=== PATIENT | male | born 1970 | race Caucasian/White ===

== ENCOUNTER 2017-06-08 12:58 | Emergency (ER) | payer SELFPAY ==
[~2017-06-08] VITALS: Ht 182.9 cm; Wt 131.0 kg
[~2017-06-08 12:58] MED LIST: DULE100A INH; DULERA PO; FLUT50SP EACH NARE; PRAV20TA PO
[2017-06-08 12:59] VITALS: BP 147/92; PULSE 88; RESP 18; TEMP 98.1; O2SAT 99
--- NOTE | 2017-06-08 13:22 | PD ---
HPI Chief Complaint: Skin Problem Time Seen by Provider: 13:13 Travel History International Travel<30 days: No Contact w/Intl Traveler<30days: No Traveled to known affect area: No History of Present Illness HPI 37-year-old male with PMH of MRSA presents to the ED for evaluation of painful, erythematous "spider bite" of the left calf. Pain rated 5/10, described as throbbing, no alleviating or exacerbating factors reported. Patient states he woke up 5 days ago with a small area that has since grown larger. He endorses "a little bit" of discharge from the area. He denies wrist, chills, nausea, vomiting, numbness, tingling, limitations to range of motion of the extremity. No treatment attempted at home. PFSH Past Medical History Asthma: Yes Past Surgical History Cholecystectomy: Yes Social History Alcohol Use: Yes (OCC) Tobacco Use: Yes (VAPE) Substance Use: Yes (OCC MARIJUANA) Allergies-Medications (Allergen,Severity, Reaction): Coded Allergies: house dust (Unverified Allergy, Severe, STS SEVERE ASTHMA, 06/08/17) cat dander (Unverified Allergy, Mild, STS MILD ASTHMA, 06/08/17) Uncoded Allergies: Trees, pine, oak, susanne (Allergy, Intermediate, Sinus reactions, 04/25/16) Reported Meds & Prescriptions Reported Meds & Active Scripts Active Ibuprofen 800 Mg Tab 800 Mg PO Q8H PRN Keflex (Cephalexin) 500 Mg Cap 500 Mg PO Q6H Bactrim DS (Sulfamethoxazole-Trimethoprim) 800-160 Mg Tab 1 Tab PO BID Pravachol (Pravastatin) 20 Mg Tab 20 Mg PO DAILY PRN Reported Fluticasone Nasal [place] 50 Mcg/Act Naspr 50 Mcg EACH NARE BID 50 mcg/spray Dulera 120 Act Inh (Mometasone-Formoterol 120 Act Inh) 100-5 Mcg/Act Inh 2 Puff INH BID [dulera 100-5mcg ] 2 Inhaler PO BID PRN Review of Systems Except as stated in HPI: all other systems reviewed are Neg Physical Exam Narrative GENERAL: Well-nourished, well-developed white male in no acute distress. SKIN: Focused skin assessment warm/dry. SKIN: There is an indurated area in the left lateral calf which measures about 2 cm in diameter. It is fluctuant but there is no pointing or drainage. There is a zone of inflammation around it but no lymphangitis. Compartments of the leg are soft. HEAD: Normocephalic. EYES: No scleral icterus. No injection or drainage. NECK: Supple, trachea midline. No JVD or lymphadenopathy. CARDIOVASCULAR: Regular rate and rhythm without murmurs, gallops, or rubs. RESPIRATORY: Breath sounds equal bilaterally. No accessory muscle use. GASTROINTESTINAL: Abdomen soft, non-tender, nondistended. MUSCULOSKELETAL: No cyanosis, or edema. BACK: Nontender without obvious deformity. No CVA tenderness. Data Data Last Documented VS Vital Signs Date Time Temp Pulse Resp B/P (MAP) Pulse Ox O2 Delivery O2 Flow Rate FiO2 06/08/17 13:12 18 06/08/17 12:59 98.1 88 147/92 (110) 99 Orders Orders Abscess Culture And Gram Stain (06/08/17 13:22) Lidocaine 1% Inj (50 Ml) (Xylocaine 1% I (06/08/17 13:30) Sulfamet-Trimeth Ds 800-160 Mg (Bactrim (06/08/17 13:30) Cephalexin (Keflex) (06/08/17 13:30) Ibuprofen (Motrin) (06/08/17 13:30) Ed Discharge Order (06/08/17 14:07) [facility] Medical Decision Making Medical Screen Exam Complete: Yes Emergency Medical Condition: Yes Differential Diagnosis Folliculitis versus abscess versus cellulitis versus other Narrative Course 47-year-old male with PMH of MRSA presents to the ED for evaluation of day history of painful reddened area of the left calf. Patient states that he thinks he had a spider bite. Treated with warm compresses with no improvement of symptoms. Patient afebrile on presentation. Physical exam consistent with abscess. Abscess I&D was performed. Please see my procedure note for details. Patient was prescribed Bactrim and Keflex, first dose is administered in the ED. He is instructed to take every antibiotic pill until they are all gone, return in 2 days for packing removal and wound recheck. He indicated understanding of instructions and is agreeable care plan. He stable and discharged home. Procedures Procedure Narrative INCISION AND DRAINAGE OF ABSCESS: The area was prepped and was sterilely draped. A subcutaneous wheal of 1 % Xylocaine with a total number for mL was used to anesthetize the area properly. A number 11 scalpel was used to make a 1.25-cm incision across the area of the abscess. The abscess was drained, complex loculations were broken down, and irrigated with normal saline. Cultures were obtained. Quarter inch iodoform packing was placed in the wound. Sterile dressing applied. Patient advised to have packing removed in two days. Diagnosis Primary Impression: Abscess of left lower leg Referrals: Primary Care Physician Patient Instructions: Abscess (ED), General Instructions Additional Instructions: Rest, hydrate. Keep the dressing was applied today on for the next 48 hours. Return to the ED in 48 hours for wound recheck and packing removal. Take antibiotics as they are prescribed until every pill is gone. Follow-up with the primary care provider. Return to the ED for any urgent or emergent medical condition. Med/Other Pt SpecificInfo: Prescription(s) given Scripts Ibuprofen (Ibuprofen) 800 Mg Tab 800 MG PO Q8H Y for Pain/Inflammation, #15 TAB 0 Refills Prov: Kinza Chapa MD 06/08/17 Cephalexin (Keflex) 500 Mg Cap 500 MG PO Q6H for Infection, #10 CAP 0 Refills Prov: Kinza Chapa MD 06/08/17 Sulfamethoxazole-Trimethoprim (Bactrim DS) 800-160 Mg Tab 1 TAB PO BID for Infection, #14 TAB 0 Refills Prov: Kinza Chapa MD 06/08/17 Disposition: 01 DISCHARGE HOME Condition: Stable Lauryn Kruse Jun 08, 2017 13:22
[2017-06-08] MEDS ORDERED: LIDOCAINE HCL 1% 50 ML VIAL INFIL ONE (13:30)
[2017-06-08] MEDS ORDERED: CEPHALEXIN MONOHYDRATE 500 MG CAP PO ONE (13:30)
[2017-06-08] MEDS ORDERED: IBUPROFEN 800 MG TAB PO ONE (13:30)
[2017-06-08] MEDS ORDERED: SULFAMETHOXAZOLE-TRIMETHOPRIM DS 800-160 MG TAB PO ONE (13:30)
[2017-06-08] MEDS ORDERED: CEPH-460 PO (14:08)
[2017-06-08] MEDS ORDERED: IBUP1TAB7 PO (14:08)
[2017-06-08] MEDS ORDERED: BACT800T5 PO (14:08)
== END 2017-06-08 14:21 | disposition home or self-care (01) ==
LOC: NEPD 12:58
DX: L02.416 Cutaneous abscess of left lower limb (principal); B95.62 Methicillin resistant Staphylococcus aureus infection as the cause of diseases classified elsewhere; Z72.0 Tobacco use
CPT/HCPCS: 10061; 86403; 87070; 87186; 87205

== ENCOUNTER 2017-06-10 16:43 | Emergency (ER) | payer SELFPAY ==
[~2017-06-10 16:43] MED LIST changes: +BACT800T5 PO; +CEPH-460 PO; +IBUP1TAB7 PO
[2017-06-10 16:44] VITALS: BP 134/78; PULSE 101; RESP 12; TEMP 98.3; O2SAT 96
[2017-06-10] MEDS ORDERED: CLINDAMYCIN PHOS 600 MG/4 ML VIAL IM ONE (17:00)
--- NOTE | 2017-06-10 17:01 | PD ---
HPI Chief Complaint: Skin Problem Time Seen by Provider: 16:58 Travel History International Travel<30 days: No Contact w/Intl Traveler<30days: No Traveled to known affect area: No History of Present Illness HPI Patient comes in for recheck of abscesses left lower extremity that was I&D 2 days ago. Patient reports pain is improved but he feels the redness that was somewhat larger. Denies any fevers. Reports has not changed the dressing and has been on his feet more than normal. Denies any radiation of the pain. Reports pain is a burning sensation around site of the abscess. Pain is worse with palpation, but improved from previous visit. Not touching it alleviates the pain. Patient states he has been taking antibiotics but has missed a couple doses. [facility] Past Medical History Asthma: Yes Past Surgical History Cholecystectomy: Yes Social History Alcohol Use: Yes (OCC) Tobacco Use: Yes (VAPE) Substance Use: Yes (OCC MARIJUANA) Allergies-Medications (Allergen,Severity, Reaction): Coded Allergies: house dust (Unverified Allergy, Severe, STS SEVERE ASTHMA, 06/08/17) cat dander (Unverified Allergy, Mild, STS MILD ASTHMA, 06/08/17) Uncoded Allergies: Trees, pine, oak, susanne (Allergy, Intermediate, Sinus reactions, 04/25/16) Reported Meds & Prescriptions Reported Meds & Active Scripts Active Ibuprofen 800 Mg Tab 800 Mg PO Q8H PRN Keflex (Cephalexin) 500 Mg Cap 500 Mg PO Q6H Bactrim DS (Sulfamethoxazole-Trimethoprim) 800-160 Mg Tab 1 Tab PO BID Review of Systems Except as stated in HPI: all other systems reviewed are Neg Physical Exam Narrative GENERAL: Well-developed, overly nourished, in no acute distress, and non-ill appearing. SKIN: Tender erythematous noted left lateral lower leg that is tender to palpation. There is no crepitus. Scant amount drainage is noted. No streaking. HEAD: Atraumatic. Normocephalic. EYES: Pupils equal and round. EOMI. No scleral icterus. No injection or drainage. ENT: No nasal bleeding or discharge. Mucous membranes pink and moist. NECK: Trachea midline. Supple. No nuclear rigidity. RESPIRATORY: No accessory muscle use. No respiratory distress. MUSCULOSKELETAL: No obvious deformities. No clubbing. No cyanosis. No edema. Full range of motion. NEUROLOGICAL: Awake and alert. No obvious cranial nerve deficits. Motor grossly within normal limits. Normal speech. PSYCHIATRIC: Appropriate mood and affect; insight and judgment normal. Data Data Last Documented VS Vital Signs Date Time Temp Pulse Resp B/P (MAP) Pulse Ox O2 Delivery O2 Flow Rate FiO2 06/10/17 16:44 98.3 101 12 134/78 (96) 96 Orders Orders Clindamycin Inj (Cleocin Inj) (06/10/17 17:00) Ed Discharge Order (06/10/17 17:12) MDM Medical Decision Making Medical Screen Exam Complete: Yes Emergency Medical Condition: Yes Medical Record Reviewed: Yes Differential Diagnosis Cellulitis, abscess, abscess recheck, failed outpatient therapy, worsening infection Narrative Course The patient has no evidence of significant cellulitis. There is no evidence of necrotizing fasciitis/ [place] at this time. The patient will be discharged on antibiotics. The patient was given signs and symptoms warnings for worsening infection, such as spreading of redness, increasing pain, and/or swelling, associated heat, or fever or feels worse, and instructed to return immediately if these signs or symptoms worsen. The patient is to return in 2 days for recheck. Sooner if worsens or as needed. The patient agrees with plan. Patient in no obvious distress upon re-evaluation. Discussed with patient culture growing out MRSA and the importance of taking all the antibiotics as previously prescribed and directed. Any questions/concerns in reference to patient diagnosis/condition discussed and clarified prior to patient's discharge. Reinforced sheer importance of close follow up with patient's primary physician or primary care clinic. Instructed patient to return to ED immediately, if symptoms return/worsen. Patient showed understanding of above instructions. Further instructions and recommendations were detailed in discharge paperwork. Patient ambulated without difficulty out of ED at discharge. Procedures Procedure Narrative Recheck OF ABSCESS: Verbal consent was obtained. Packing was removed. The abscess was drained and irrigated with normal saline. Half inch iodoform packing was placed in the wound. Sterile dressing applied by nurse. Patient tolerated procedure well. Patient advised to return here in 2 days to have packing removed and wound rechecked. Patient verbalized understanding. Diagnosis Primary Impression: Encounter for recheck of abscess following incision and drainage Additional Impression: MRSA infection Referrals: [facility] Patient Instructions: Abscess Follow-up (ED), General Instructions, MRSA ( Methicillin-Resistant Staphylococcus Aureus) (ED) Additional Instructions: Follow-up with your primary care physician or return here in 2 days for recheck. Take all medication as previously prescribed. Keep wound dry and clean as possible using soap and water. Do not soak or submerge wound. Apply warm compresses to affected area once a day to facilitate drainage. Change dressing daily or any time that it is soiled. Return to the emergency department if symptoms get worse. Disposition: 01 DISCHARGE HOME Condition: Stable Mahin Benz Jun 10, 2017 17:01
== END 2017-06-10 18:10 | disposition home or self-care (01) ==
LOC: NEPK 16:43
DX: L02.416 Cutaneous abscess of left lower limb (principal); B95.62 Methicillin resistant Staphylococcus aureus infection as the cause of diseases classified elsewhere
CPT/HCPCS: 10060; 96372